=== PATIENT | male | born 1995 | race Caucasian/White ===

== ENCOUNTER 2017-07-14 08:13 | Inpatient (IN) | payer OTHER ==
[~2017-07-14 08:13] MED LIST: RISPERDAL1 M1 PO
--- NOTE | 2017-07-14 08:15 | ED PSYCHIATRIC COMPLAINT ---
History of Present Illness General Chief Complaint: Psychiatric Related Complaint Stated Complaint: BIBA FOUND OUTSIDE IN UNDERWEAR, COMBATIVE Source: EMS Exam Limitations: confusion Allergies Coded Allergies: tree nut (Severe, ANAPHYLAXIS 07/14/17) Reconcile Medications Risperidone (Risperdal) 1 MG TABLET 1 TAB PO DAILY SUSU Triage Nurses Notes Reviewed? yes HPI: 22 year old male presents to the ER for agitation and confusion. He was found in his underwear wandering the streets and told EMS he tried to smoke K47. He appears confused, smiling, agitated, right subconjunctival hemorrhage. He is unable to tell me what happened. He also has abrasions to his right elbow and left 2nd toe. (Heaven MORALES,Светлана) Vital Signs & Intake/Output Vital Signs & Intake/Output Vital Signs Date Time Temp Pulse Resp B/P B/P Pulse O2 O2 Flow FiO2 Mean Ox Delivery Rate 07/15 1340 97.6 84 18 137/84 100 Room Air 07/15 1114 98.0 97 18 150/89 99 Room Air 07/15 1113 99 Room Air 07/15 0900 98.0 74 18 130/77 99 Room Air 07/15 0700 99 Room Air 07/15 0700 96.9 76 18 147/81 99 Room Air 07/15 0559 98.2 105 20 170/99 100 Room Air 07/15 0020 98.8 110 18 156/82 97 Room Air 07/14 2043 98.7 108 18 167/96 100 Room Air 07/14 1833 98.2 100 146/98 07/14 1704 98.6 84 18 164/76 96 Room Air ED Intake and Output 07/15 0000 07/14 1200 Intake Total 3000 0 Output Total 1200 Balance 1800 0 Intake, IV 3000 Intake, Oral 0 Output, Urine 1200 (Yeni MORALES,Lyle Kerr) Past History Travel History Traveled to [place] past 21 day No Medical History Any Pertinent Medical History? 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 No (Светлана Collado MD) Review of Systems Review of Systems Constitutional: Reports: see HPI (UNABLE TO OBTAIN). (Светлана Collado MD) Physical Exam Physical Exam General Appearance: well developed/nourished, alert, awake Head: atraumatic, normal appearance Eyes: Bilateral: normal appearance, PERRL, EOMI. Ears, Nose, Throat: hearing grossly normal Extremities: normal range of motion, RIGHT ELBOW ABRASION, LEFT TOE ABRASION Neurological/Psychiatric: awake, alert, calm Appearance/Memory/Insight: disheveled, impaired insight Behavoir/Eye Contact/Speech: belligerent, uncooperative Thoughts/Hallucinations: no apparent hallucination Skin: intact, normal color, warm/dry SAD PERSONS Done? UNOBTAINABLE (Светлана Collado MD) Progress Differential Diagnosis: PSYCHOSIS, SCHIZOPHRENIA, SCHIZOAFFECTIVE DISORDER (Светлана Collado MD) Plan of Care: Orders Procedure Date/time Status CREATINE PHOSPHOKINASE 07/16 0600 Active CBC WITHOUT DIFFERENTIAL 07/16 0600 Active BASIC ELECTROLYTES PLUS BUN&CR 07/16 0600 Active Regular Diet 07/15 L Active Nothing by Mouth 07/15 B Complete CREATINE PHOSPHOKINASE 07/15 2200 Active CREATINE PHOSPHOKINASE 07/15 1600 Active Restraint- Behavioral (Order) 07/15 1030 Active Pathway - chart 07/15 1025 Active House Staff 07/15 1025 Active CREATINE PHOSPHOKINASE 07/15 1025 Complete Patient Data 07/15 0804 Active ED Holding Orders 07/15 0729 Active Admit to inpatient 07/15 0729 Active Vital Signs 07/15 0729 Active Code Status 07/15 0729 Active Restraint- Behavioral (Renew) 07/15 0700 Active Cali, Insertion/Removal/Asses 07/15 0635 Active CULTURE,URINE 07/15 0635 Active EKG 07/15 0635 Active CULTURE,URINE 07/15 0632 Active COMPREHENSIVE METABOLIC PANEL 07/15 0424 Complete CREATINE PHOSPHOKINASE 07/15 0424 Complete Continuous Observation Monitor 07/15 0410 Active Restraint- Behavioral (Renew) 07/15 0300 Active Continuous Observation Monitor 07/15 0010 Active VTE Mechanical Prophylaxis 07/15 UNK Active Restraint- Behavioral (Renew) 07/14 2245 Active Restraint- Behavioral (Renew) 07/14 1845 Active CBC WITHOUT DIFFERENTIAL 07/14 1756 Complete BASIC METABOLIC PANEL 07/14 1756 Complete Restraint- Behavioral (Order) 07/14 1444 Active Intake & Output 07/14 0921 Active Current Medications Sig/Shon Start time Last Medication Dose Stop Time Status Admin Acetaminophen 650 MG Q6P PRN 07/15 1030 AC (Tylenol) Sodium Chloride 1,000 ML .Q6H40M 07/15 1030 AC 07/15 (Normal Saline 0.9%) 1252 Enoxaparin Sodium 40 MG DAILY 07/15 1023 AC (Lovenox) Laboratory Tests 07/15/17 1113: Creatine Kinase 5147 H 07/15/17 0430: Anion Gap 19 H, Estimated GFR > 60, BUN/Creatinine Ratio 20.0, Glucose 151 H, Calcium 8.7, Total Bilirubin 0.9, AST 138 H, ALT 53, Alkaline Phosphatase 61, Creatine Kinase 6582 H, Total Protein 6.4, Albumin 4.0, Globulin 2.4, Albumin/ Globulin Ratio 1.7 07/14/17 1755: Anion Gap 18 H, Estimated GFR > 60, BUN/Creatinine Ratio 26.7 H, Glucose 66, Calcium 8.4, CBC w Diff NO MAN DIFF REQ, RBC 4.28 L, MCV 87.7, MCH 29.7, RDW 12.8, MPV 7.4, Gran % 77.3 H, Lymphocytes % 11.3 L, Monocytes % 10.9 H, Eosinophils % 0.1, Basophils % 0.4, Absolute Granulocytes 11.6 H, Absolute Lymphocytes 1.7, Absolute Monocytes 1.6 H, Absolute Eosinophils 0, Absolute Basophils 0.1, PUBS MCHC 33.8 07/14/17 1415: Urine Opiates Screen < 100.00, Methadone Screen 59, Barbiturate Screen < 60, Ur Phencyclidine Scrn < 6.00, Amphetamines Screen < 100, U Benzodiazepines Scrn < 85, Urine Cocaine Screen < 50, Urine Cannabis Screen 79.50 H Microbiology 07/15 0635 URINE ROUT: Urine Culture - ORD 07/15 0633 URINE ROUT: Urine Culture - RECD 9:08 AM DISCUSSED CASE WITH ICU RELATIONS LIAISON DR MCCARTHY WHO FEELS PATIENT CAN GO TO WITH A SAFETY MONITOR HE IS JUST RECEIVING FLUIDS, WAITING FOR PSYCHOSIS TO CLEAR. RESTING HR IN 70-80'S, EKG WNL. HEAD/NECK IMAGING NEGATIVE. WAITING FOR HOUSESTAFF TO EVALUATE PATIENT. (Heaven MORALES,Светлана) Diagnostic Imaging: Discussed w/RAD: CT Scan. Radiology Impression: PATIENT: LILI NEWMAN PRESENT AGE: 22 PATIENT ACCOUNT NO: [id number] : 95 LOCATION: [facility] ORDERING PHYSICIAN: Lyle Jaime MD SERVICE DATE: 07/15/17 EXAM TYPE: CAT - CT CERV SPINE WO IV CONTRAST; CT HEAD WO IV CONTRAST EXAMINATION: NONCONTRAST HEAD CT NONCONTRAST CERVICAL SPINE CT INDICATION INFORMATION: Paranoid. Head trauma. Cervical spine trauma. COMPARISON: None TECHNIQUE: Separate noncontrast CT examinations of the head and cervical spine were performed. Coronal and sagittal images were created for each examination at the technologist workstation. DLP: 1055 mGy-cm FINDINGS: Head: There is no evidence of acute intracranial hemorrhage or territorial infarction. No abnormal mass effect or midline shift is seen. Espinoza to white matter differentiation is well preserved. No extra-axial fluid collections are identified. No hydrocephalus. No significant volume loss. There is no abnormal attenuation within the brain parenchyma. The osseous structures and soft tissues are normal. The mastoid air cells and visualized portions of the paranasal sinuses are well aerated. Cervical spine: There is anatomic alignment of the vertebral bodies and posterior elements. The atlantoaxial and atlantooccipital articulations are intact. Vertebral body heights and intervertebral disc spaces are maintained. No evidence of acute fracture. No prevertebral soft tissue swelling. Visualized portions of the lung apices are unremarkable. The thyroid gland is unremarkable. IMPRESSION: 1. No acute intracranial findings. 2. Unremarkable appearance of the cervical spine. DICTATED BY: Antoine Hamlin MD DATE/TIME DICTATED:07/15/17622 TALENT ACQUISITION PROJECT MANAGER:[place] DATE/TIME TRANSCRIBED:07/15/17622 CONFIDENTIAL, DO NOT COPY WITHOUT APPROPRIATE AUTHORIZATION. <Electronically signed in Other Vendor System> SIGNED BY: Antoine Hamlin MD 07/15/17 0628 Comments: 07/14/2017 19:45:03 PM patient signed out to me by Dr. Collado at shift change advisor. Patient resting comfortably. 07/14/2017 11:10:42 PM patient continues to show signs of hallucinations and delusions. 07/15/2017 4:18:29 AM patient continues to yell and show signs of severe agitation despite repeated doses of Zyprexa and other sedatives. 07/15/2017 5:54:31 AM patient's CK has elevated although fortunately his renal functions remains stable. His acidosis has improved some. Given his persistently agitated state I have ordered ketamine to facilitate a CAT scan of the head to rule out intracranial pathology or trauma and to facilitate IV fluids. I feel the patient should be admitted given his worsening rhabdomyolysis. 07/15/2017 7:33:04 AM patient signed out to Dr. Collado at shift change advisor. Patient's head CAT scan reveals no acute abnormality. Cali catheter has been placed to facilitate intake and output recordings. IV fluids have been ordered to maintain renal perfusion. (Yeni MORALES,Lyle Kerr) Departure Departure Time of Disposition: 728 Disposition: STILL A PATIENT Condition: Stable Clinical Impression Primary Impression: Rhabdomyolysis Secondary Impressions: Agitation, Psychosis Referrals: Patient Has No Primary Care Dr (PCP/Family) Departure Forms: Customer Survey General Discharge Information Admission Note Spoke With: Walker Burgess MD Documentation of Exam: Documentation of any treatments & extenuating circumstances including Concerns Regarding Discharge (functional status, medication knowledge or non-compliance, living conditions, etc.) that warrant an admission rather than observation: [ RESTRAINTS, SEDATION, IV FLUIDS, RECHECK ELECTROLYTES, RECHECK CK, 1:1 SITTER, CRISIS EVALUATION WHEN MEDICALLY CLEARED, CASE DISCUSSED WITH DR MCCARTHY] (Heaven MORALES,Светлана)
[2017-07-14 08:35] LABS: ABSOLUTE BASOPHIL COUNT 0.1 /CUMM (0.0-0.2); ABSOLUTE EOSINOPHIL COUNT 0 /CUMM (0.0-0.7); ABSOLUTE GRANULOCYTE CT 17.4 /CUMM (1.4-6.5); ABSOLUTE LYMPH COUNT 1.3 /CUMM (1.2-3.4); ABSOLUTE MONOCYTE COUNT 1.6 /CUMM (0.10-0.60); BASOPHIL % 0.3 % (0.0-2.0); EOSINOPHIL % 0 % (0-5); GRANULOCYTE % 85.5 % (42.2-75.2); HEMATOCRIT 42.6 % (42-52); MEAN CORPUSCULAR HGB CONC 34.3 G/DL (33.0-37.0); MEAN CORPUSCULAR VOLUME 87.6 FL (80.0-94.0); PLATELET COUNT 328 /CUMM (130-400); RBC DISTRIBUTION WIDTH 12.6 % (11.5-14.5); RED BLOOD CELL CT 4.86 /CUMM (4.70-6.10); WHITE BLOOD CELL COUNT 20.3 /CUMM (4.8-10.8)
[2017-07-14 18:07] LABS: ABSOLUTE BASOPHIL COUNT 0.1 /CUMM (0.0-0.2); ABSOLUTE EOSINOPHIL COUNT 0 /CUMM (0.0-0.7); ABSOLUTE MONOCYTE COUNT 1.6 /CUMM (0.10-0.60); BASOPHIL % 0.4 % (0.0-2.0); EOSINOPHIL % 0.1 % (0-5)
[2017-07-14 18:15] LABS: ABSOLUTE GRANULOCYTE CT 11.6 /CUMM (1.4-6.5); ABSOLUTE LYMPH COUNT 1.7 /CUMM (1.2-3.4); GRANULOCYTE % 77.3 % (42.2-75.2); MEAN CORPUSCULAR HGB 29.7 PG (27.0-31.0); MEAN CORPUSCULAR HGB CONC 33.8 G/DL (33.0-37.0); MEAN CORPUSCULAR VOLUME 87.7 FL (80.0-94.0); MEAN PLATELET VOLUME 7.4 FL (7.4-10.4); PLATELET COUNT 267 /CUMM (130-400); RBC DISTRIBUTION WIDTH 12.8 % (11.5-14.5); RED BLOOD CELL CT 4.28 /CUMM (4.70-6.10)
[2017-07-14 18:16] LABS: HEMATOCRIT 37.5 % (42-52)
--- NOTE | 2017-07-15 06:28 | CT SCAN REPORT ---
EXAMINATION: NONCONTRAST HEAD CT NONCONTRAST CERVICAL SPINE CT INDICATION INFORMATION: Paranoid. Head trauma. Cervical spine trauma. COMPARISON: None TECHNIQUE: Separate noncontrast CT examinations of the head and cervical spine were performed. Coronal and sagittal images were created for each examination at the technologist workstation. DLP: 1055 mGy-cm FINDINGS: Head: There is no evidence of acute intracranial hemorrhage or territorial infarction. No abnormal mass effect or midline shift is seen. Espinoza to white matter differentiation is well preserved. No extra-axial fluid collections are identified. No hydrocephalus. No significant volume loss. There is no abnormal attenuation within the brain parenchyma. The osseous structures and soft tissues are normal. The mastoid air cells and visualized portions of the paranasal sinuses are well aerated. Cervical spine: There is anatomic alignment of the vertebral bodies and posterior elements. The atlantoaxial and atlantooccipital articulations are intact. Vertebral body heights and intervertebral disc spaces are maintained. No evidence of acute fracture. No prevertebral soft tissue swelling. Visualized portions of the lung apices are unremarkable. The thyroid gland is unremarkable. IMPRESSION: 1. No acute intracranial findings. 2. Unremarkable appearance of the cervical spine.
--- NOTE | 2017-07-15 09:52 | History & Physical ---
Francisco MORALES,[place] 07/15/17 0951: General Information and HPI MD Statement: I have seen and personally examined LILI NEWMAN and documented this H&P. The patient is a 22 year old M who presented with a patient stated chief complaint of [Agitation, confusion, psychotic behavior]. Source of Information: EMS, ER notes, father Exam Limitations: unable to give history, confusion History of Present Illness: 22 year old male with a remote history of schizophrenia not on medications presents to the ER for agitation and confusion. He was found in his underwear wandering the streets and told EMS he tried to smoke K47 (also known as pot- pouri or spice on the streets). He appeared confused and was severely agitated requiring restraints in the ER. He is unable to contribute to the history. According to information gathered by ER staff, his father says he had become very stressed recently; had bought an expensive car but was having trouble making the payments. He lives with his parents, has a job and has been functioning well despite his history of schizophrenia without much issues until recently. It is unclear if he smokes, drinks alcohol or uses any other illicit medications. In the ER he had to be medicated with ketamine to get a Head CT due to severe agitation not amenable to other medications. 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 Home Who Do You Live With? parent Smoking Status: Unknown If Ever Smoked ETOH Use: unknown Illicit Drug Use: marijuana Review of Systems Review of Systems Constitutional: Reports: no symptoms. Comments pt unable to participate in history due to AMS Exam & Diagnostic Data Last 24 Hrs of Vital Signs/I&O Vital Signs Date Time Temp Pulse Resp B/P B/P Pulse O2 O2 Flow FiO2 Mean Ox Delivery Rate 07/15 1429 86 139/86 07/15 1340 97.6 84 18 137/84 100 Room Air 07/15 1114 98.0 97 18 150/89 99 Room Air 07/15 1113 99 Room Air 07/15 0900 98.0 74 18 130/77 99 Room Air 07/15 0700 99 Room Air 07/15 0700 96.9 76 18 147/81 99 Room Air 07/15 0559 98.2 105 20 170/99 100 Room Air 07/15 0020 98.8 110 18 156/82 97 Room Air 07/14 2043 98.7 108 18 167/96 100 Room Air 07/14 1833 98.2 100 146/98 07/14 1704 98.6 84 18 164/76 96 Room Air Intake & Output 07/15 1600 07/15 0800 07/15 0000 Intake Total 3000 Output Total 600 1200 Balance -600 1800 Intake, IV 3000 Output, Urine 600 1200 Physical Exam General Appearance Lethargic and drowsy but arousable with voice and painful stimuli, confused Skin bruise over left 2nd toes and erthematous rash over bilateral knees Skin Temp/Moisture Exam: Warm/Dry Sepsis Skin Exam (color): Normal for Ethnicity HEENT Mucous Membr. moist/pink, small but reactive pupils, right conjunctival hemorrhage Neck Supple, No JVD Cardiovascular Normal S1, Normal S2, with missed beats Lungs Clear to Auscultation, Normal Air Movement Abdomen Normal Bowel Sounds, Soft, No Tenderness Extremities No Edema, Normal Pulses Last 24 Hrs of Labs/Tom: Laboratory Tests 07/15/17 1113: Creatine Kinase 5147 H 07/15/17 0430: Anion Gap 19 H, Estimated GFR > 60, BUN/Creatinine Ratio 20.0, Glucose 151 H, Calcium 8.7, Total Bilirubin 0.9, AST 138 H, ALT 53, Alkaline Phosphatase 61, Creatine Kinase 6582 H, Total Protein 6.4, Albumin 4.0, Globulin 2.4, Albumin/ Globulin Ratio 1.7 07/14/17 1755: Anion Gap 18 H, Estimated GFR > 60, BUN/Creatinine Ratio 26.7 H, Glucose 66, Calcium 8.4, CBC w Diff NO MAN DIFF REQ, RBC 4.28 L, MCV 87.7, MCH 29.7, RDW 12.8, MPV 7.4, Gran % 77.3 H, Lymphocytes % 11.3 L, Monocytes % 10.9 H, Eosinophils % 0.1, Basophils % 0.4, Absolute Granulocytes 11.6 H, Absolute Lymphocytes 1.7, Absolute Monocytes 1.6 H, Absolute Eosinophils 0, Absolute Basophils 0.1, PUBS MCHC 33.8 Microbiology 07/15 0635 URINE ROUT: Urine Culture - CAN Cancelled: DUPLICATE - SEE [id number] 07/15 06 URINE ROUT: Urine Culture - RECD Diagnostic Data EKG Results SR-90; inferior q waves, non-specific t-wave abnormalities Assessment/Plan Assessment: 22 year old male with a remote history of schizophrenia not on medications presents to the ER for agitation and confusion. He was found in his underwear wandering the streets and told EMS he tried to smoke K47 (also known as pot- pouri or spice on the streets). He appeared confused and was severely agitated requiring restraints in the ER. 1. Psychosis with AMS likely from sedation 2. Rhabdomyolysis-eleveted CK possibly from severe agitation 3. Remote hx of schizophrenia Plan 1. Admit to GM 2. IVF hydration with D5 1/2 NS 3. Keep NPO for now 4. 1:1 sitter 5. trend CK Q6 hrs 6. CXR to rule aspiration pnuemonitis 7. Aspiration precaution 8. Psych consult in AM 9. Follow attending recommendations 10. DVT ppx-with lovenox 11. FC 12. Mild pain pathway; avoid opiods/sedatives As Ranked By This Provider Problem List: 1. Psychosis 2. Rhabdomyolysis Core Measures/Misc (03/18) Acute Coronary Syndrome ACS Diagnosis: No Congestive Heart Failure Congestive Heart Failure Diagnosis No Cerebrovascular Accident CVA/TIA Diagnosis: No VTE (View Protocol) VTE Risk Factors Acute Medical Illness No Mechanical VTE Prophylaxis d/t N/A MechProphylax Ordered No VTE Pharm Prophylaxis d/t NA PharmProphylax ordered Sepsis (View protocol) Sepsis Present: No Resident Review Statement Resident Statement: examined this patient Other Findings: see TAI Burgess MD,Walker 07/15/17 1406: Attending MD Review Statement Attending Statement Attending MD Statement: examined this patient, discuss w/resident/PA/MICA PLATE LAYER, agreed w/resident/PA/MICA PLATE LAYER, reviewed EMR data (avail), discussed with nursing, discussed with case mgmt, amended to note Attending Assessment/Plan: Patient seen and examined. History mostly obtained from ER staff. He is a 22- year-old male with history of schizophrenia reports of poor compliance with therapy was brought in after he was found wandering the streets in his underwear. He had reportedly smoked a medication called K47. Is unclear what this medication is. Staff report that it is synthetic marijuana. An online search suggests it may be a combination of cocaine and ketamine. His urine toxicology was positive only for marijuana which he apparently smokes as well. He was brought into the emergency room for evaluation yesterday morning. He was hallucinating and delirious and required several doses of sedatives. Yesterday in the emergency room he got a total of Ativan 6 mg IV, Benadryl 100 mg Haldol 10 mg and Zyprexa 10 mg. This morning he was again agitated and received Zyprexa 10 mg as well as 50 mg of ketamine. He was restrained on 4 points. He is found with rhabdomyolysis with CPK level of over 6000 yesterday. Levels had improved to 5147 at which point he was referred to the inpatient medical service for further management of his rhabdomyolysis in addition to his psychosis. General appearance: Very sedated but responsive. HEENT: Anicteric, no pallor right conjunctiva hemorrhage. Neurologic: Four-point restraints in place. Answers questions appropriately when awake but falls back asleep. Able to protect airway. Pupils equal and reactive. No nystagmus. Extraocular muscles intact. Heart: S1-S2 regular Lungs: Good entry bilaterally, clear to auscultation Abdomen: Flat, soft, nontender with normal bowel sounds Extremities: No pedal edema Head CT today shows no acute pathologies. Problems: 1. Acute medication induced psychosis.; In patient with underlying schizophrenia and poorly compliant with therapy. 2. Rhabdomyolysis 3. Leukocytosis; likely reactive 4. Anion gap acidosis; likely secondary to starvation plan:. -Admit to inpatient General medical service. -Aggressive IV hydration with D5 half normal saline at 1 25 cc/h. 2 L. -Psychiatric consultation. -Close monitoring for de-escalation of restraints per nursing protocol.- -Maintain aspiration precautions at all times. Hold all sedatives when patient is drowsy. -Keep n.p.o. until patient is significantly more alert. -No clinical evidence of infection are present. Recommend obtaining chest x-ray to rule out aspiration pneumonitis. -DVT prophylaxis with heparin subcu.
[2017-07-15 16:04] VITALS: BP 140/80
--- NOTE | 2017-07-15 17:41 | RADIOLOGY REPORT ---
EXAMINATION: XR PORTABLE CHEST CLINICAL INFORMATION: Altered mental status. Medication overdose. Evaluate for aspiration pneumonitis. COMPARISON: None TECHNIQUE: Portable frontal view of the chest was obtained. FINDINGS: The lungs are well-inflated and clear. Trachea is midline in position. No evidence of interstitial lung disease, focal consolidation, mass or pleural effusion. The cardiomediastinal silhouette and hilar structures have normal size and contour. Bones of the thorax are unremarkable. The visualized upper abdomen is normal. IMPRESSION: No evidence of aspiration pneumonia.
[2017-07-15 22:47] VITALS: BP 152/84
[2017-07-16 06:30] VITALS: BP 144/70
[2017-07-16 09:16] LABS: ABSOLUTE BASOPHIL COUNT 0 /CUMM (0.0-0.2); ABSOLUTE EOSINOPHIL COUNT 0.1 /CUMM (0.0-0.7); ABSOLUTE GRANULOCYTE CT 5.8 /CUMM (1.4-6.5); ABSOLUTE MONOCYTE COUNT 0.9 /CUMM (0.10-0.60); BASOPHIL % 0.5 % (0.0-2.0); EOSINOPHIL % 1.6 % (0-5); GRANULOCYTE % 65.2 % (42.2-75.2); HEMATOCRIT 38.1 % (42-52); MEAN CORPUSCULAR HGB 30.3 PG (27.0-31.0); MEAN CORPUSCULAR HGB CONC 34.5 G/DL (33.0-37.0); MEAN CORPUSCULAR VOLUME 87.9 FL (80.0-94.0); MEAN PLATELET VOLUME 7.5 FL (7.4-10.4); PLATELET COUNT 276 /CUMM (130-400); RBC DISTRIBUTION WIDTH 13.2 % (11.5-14.5); RED BLOOD CELL CT 4.34 /CUMM (4.70-6.10); WHITE BLOOD CELL COUNT 8.8 /CUMM (4.8-10.8)
--- NOTE | 2017-07-16 11:15 | PN- Housestaff ---
See Addendum Subjective Follow-up For: Rhabdomyolysis Subjective: Patient was seen and examined, sitter at bedside, vitals are stable. No complaints. Alert, orinated x 3. denies pain. Has laceration of the right elbow and sub-conjunctiva hemorrhage of the right eye however no pain and vision is intact. Review of Systems Constitutional: Reports: see HPI. Objective Last 24 Hrs of Vital Signs/I&O Vital Signs Date Time Temp Pulse Resp B/P B/P Pulse O2 O2 Flow FiO2 Mean Ox Delivery Rate 07/16 0630 98.1 91 18 144/70 97 Room Air 07/15 2247 99.1 106 19 152/84 98 Room Air 07/15 1604 98.0 70 20 140/80 98 07/15 1429 86 139/86 07/15 1340 97.6 84 18 137/84 100 Room Air 07/15 1114 98.0 97 18 150/89 99 Room Air 07/15 1113 99 Room Air Intake & Output 07/16 1600 07/16 0800 07/16 0000 Intake Total 900 800 Output Total 800 750 Balance 100 50 Intake, IV 800 400 Intake, Oral 100 400 Number 0 Bowel Movements Output, Urine 800 750 Physical Exam General Appearance: Alert, Oriented X3, Cooperative, No Acute Distress Skin: No Rashes, No Breakdown, No Significant Lesion Skin Temp/Moisture Exam: Warm/Dry HEENT: Atraumatic, PERRLA, EOMI, Mucous Membr. moist/pink Neck: Supple Cardiovascular: Regular Rate, Normal S1, Normal S2, No Murmurs Lungs: Clear to Auscultation, Normal Air Movement Abdomen: Normal Bowel Sounds, Soft, No Tenderness Neurological: Normal Speech, Strength at 5/5 X4 Ext, Normal Tone, Sensation Intact, Cranial Nerves 3-12 NL, Reflexes 2+ Extremities: No Clubbing, No Cyanosis, No Edema, Normal Pulses Assessment/Plan Assessment: 22 year old male with a remote history of schizophrenia not on medications presents to the ER for agitation and confusion. He was found in his underwear wandering the streets and told EMS he tried to smoke K47 (also known as pot- pouri or spice on the streets). He appeared confused and was severely agitated requiring restraints in the ER. 1. Psychosis with AMS likely from sedation 2. Rhabdomyolysis-eleveted CK possibly from severe agitation 3. Remote hx of schizophrenia Plan 1. Continue IV hydration with 1 25 mL/h 2. Will keep patient nothing by mouth since he still drowsy, and we will assess later in the day and to start diet if appropriate 3. 1:1 sitter 4. Keep the Cali catheter for now 5. CK is improving 2264 today, will repeat in a.m. 6. CXR was obtained to rule out aspiration pneumonia since the patient presented with white blood cell 20 however when down to 8.8 mostly reactive 7. Urine culture remained negative 8. Psych consult in AM 9. Follow attending recommendations pending 10. DVT ppx-with lovenox 11. FC 12. Mild pain pathway; avoid opiods/sedatives Problem List: 1. Rhabdomyolysis Pain Ratin Pain Location: N/A Pain Goal: Pain 4 or less Pain Plan: See medication Tomorrow's Labs & Rationales: CK
[2017-07-16 14:26] VITALS: BP 140/60
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
[2017-07-16 22:40] VITALS: BP 152/70
[2017-07-17 06:19] VITALS: BP 114/70
--- NOTE | 2017-07-17 08:53 | PN- Housestaff ---
Ajay MORALES,[facility] 07/17/17 0844: Subjective Follow-up For: Rhabdomyolysis Subjective: Patient was seen and examined this morning, vitals stable. Patient is more awake today. I asked him if he has any pain, he reported "pain in my arm", "I do not know where, I think it is gone". Kinf of confused with pressure talk. No overnight reports for agitation. Was evaluated by psych yesterday. Patient wants to be discharged today, he was told to wait for psych recommendation. Review of Systems Constitutional: Reports: see HPI. Objective Last 24 Hrs of Vital Signs/I&O Vital Signs Date Time Temp Pulse Resp B/P B/P Pulse O2 O2 Flow FiO2 Mean Ox Delivery Rate 07/17 0619 98.2 86 20 114/70 97 Room Air 07/16 2240 98.9 82 18 152/70 95 07/16 1426 98.0 93 18 140/60 97 Room Air Intake & Output 07/17 1600 07/17 0800 07/17 0000 Intake Total 1600 980 Output Total Balance 1600 980 Intake, IV 1000 500 Intake, Oral 600 480 Physical Exam General Appearance: Alert, Cooperative, No Acute Distress Skin: laceration over the right elbow Skin Temp/Moisture Exam: Warm/Dry HEENT: Atraumatic, PERRLA, EOMI, Mucous Membr. moist/pink Neck: Supple Cardiovascular: Regular Rate, Normal S1, Normal S2, No Murmurs Lungs: Clear to Auscultation, Normal Air Movement Abdomen: Normal Bowel Sounds, Soft, No Tenderness Neurological: Normal Speech, Strength at 5/5 X4 Ext, Normal Tone, Sensation Intact, Cranial Nerves 3-12 NL, Reflexes 2+ Extremities: No Clubbing, No Cyanosis, No Edema, Normal Pulses Assessment/Plan Assessment: 22 year old male with a remote history of schizophrenia not on medications presents to the ER for agitation and confusion. He was found in his underwear wandering the streets and told EMS he tried to smoke K47 (also known as pot- pouri or spice on the streets). He appeared confused and was severely agitated requiring restraints in the ER. 1. Psychosis with AMS likely from sedation 2. Rhabdomyolysis-eleveted CK possibly from severe agitation 3. Remote hx of schizophrenia Plan 1. Continue IV hydration with 1 25 mL/h 2. Psych evaluation was obtained yesterday with recommendation to keep him in hospital, they will offer me inpatient admission today. 3. 1:1 sitter 4. Cali catheter removed yesterday, diet was started as well 5. CK is improving gradually, today level is pending 6. CXR was obtained to rule out aspiration pneumonia since the patient presented with white blood cell 20 however when down to 8.8 mostly reactive 7. Urine culture remained negative DVT ppx-with lovenox FC Diet regular Mild pain pathway; avoid opiods/sedatives Problem List: 1. Rhabdomyolysis Pain Ratin Pain Location: n/a Pain Goal: Pain 4 or less Pain Plan: see medication Tomorrow's Labs & Rationales: NELLI Allred MD,Abbi 07/17/17 1229: Attending MD Review Statement Attending Statement Attending MD Statement: examined this patient, discuss w/resident/PA/PRODUCT PROMOTER SALES PERSON, agreed w/resident/PA/PRODUCT PROMOTER SALES PERSON, reviewed EMR data (avail), discussed with nursing, discussed with case mgmt, amended to note Attending Assessment/Plan: Patient seen and examined, more awake today and feels overall better. CK levels are coming down. Vital Signs Date Time Temp Pulse Resp B/P B/P Pulse O2 O2 Flow FiO2 Mean Ox Delivery Rate 07/17 0619 98.2 86 20 114/70 97 Room Air 07/16 2240 98.9 82 18 152/70 95 07/16 1426 98.0 93 18 140/60 97 Room Air on exam; aox3, nad. cv; s1,s2, rrr resp; clear abd; soft, nt, bs+ ext; no edema. Laboratory Tests 07/17 0819 Chemistry Sodium (137 - 145 mmol/L) 144 Potassium (3.5 - 5.1 mmol/L) 4.0 Chloride (98 - 107 mmol/L) 106 Carbon Dioxide (22 - 30 mmol/L) 27 Anion Gap (5 - 16) 11 BUN (9 - 20 mg/dL) 7 L Creatinine (0.7 - 1.2 mg/dL) 0.8 Estimated GFR (>60 ml/min) > 60 BUN/Creatinine Ratio (7 - 25 %) 8.8 Creatine Kinase (55 - 170 U/L) 1181 H A/P; Patient is a 22-year-old male with remote history of schizophrenia, not on any medications admitted with altered mental state, rhabdomyolysis. CK levels improved. Will DC IVfs. Patient seen by Psych today. Has been cleared by psych to go home. Please clarify with psychiatry about continuing Risperdal. If patient cleared from psych standpoint, he is medically stable for discharge home today. Outpatient follow-up plan as noted in the psychiatry note.
--- NOTE | 2017-07-17 11:58 | PN- Psychiatry ---
Assessment/Plan Impression: Thepatient alanains some rigid thinking about psychiatric treatment for his anxiety. He wants to be assured that he will be assigned a prescriber who will give him what he wants, namely Xanax. He has been getting this from a friend in the past. He is not currently open to first-line medications, such as SSRI, and he is not willing to admit he has a cannabis use problem. He is agreeable to an intake appointment with [facility]; we are awaiting a return call. TC with his mother, Mia, today: She visited last night and thinks that the patient is at his baseline, and is willing to take him back home. She is in agreement that the patient should be in a program. she mentions that she is trying to get him an appointment at [facility] ([facility]). I disclosed to her (and the patient a few minutes later) that I am employed at [facility] [facility] part-time, but that would not prevent the patient from coming there, and if he does not wish to see me, there are other providers. The patient agreed to meet with myself and the [facility] medical student for the interview today. After the interview, he stated that he only wished to meet alone with this policy writer sales in the future, here in the hospital. Suggestion: 1. We will advise the patient of his intake appointment at [facility] for therapy and medication management for anxiety and substance use disorder. We are expecting a return call. 2. Instruct the patient to avoid alcohol, cannabis, synthetic marijuana and other street/recreational drugs. The patient is not suicidal, not psychotic, not delirious, and is cleared psychiatrically for discharge. Signed [facility] releases for [facility] and the patient's parents are in the chart. Thank you for this consult. Psychiatry is signing off, but will advise patient of his intake appointment. Subjective Subjective: Alert and oriented. Denies AH or VH, and presents no mil delusions. He denies SI or HI. Insight into his condition, including drug use and anxiety, possibly substance-induced, is limited. Judgement is moderate. He reportshe feels safe here. Objective Last 24 Hrs of Vital Signs/I&O Vital Signs Date Time Temp Pulse Resp B/P B/P Pulse O2 O2 Flow FiO2 Mean Ox Delivery Rate 07/17 0619 98.2 86 20 114/70 97 Room Air 07/16 2240 98.9 82 18 152/70 95 07/16 1426 98.0 93 18 140/60 97 Room Air Intake & Output 07/17 1600 07/17 0800 07/17 0000 Intake Total 1600 980 Output Total Balance 1600 980 Intake, IV 1000 500 Intake, Oral 600 480 Physical Exam: Not performed. Physical Exam General Appearance: alert, awake Neurologic/Psychiatric: alert, oriented x 3 Current Medications: Current Medications Sig/Shon Start time Last Medication Dose Route Stop Time Status Admin Acetaminophen 650 MG Q6P PRN 07/15 1030 AC 07/16 PO 0246 Dextrose/Lactated 1,000 ML Q8H 07/15 1615 DC 07/17 Ringer's IV 0204 Enoxaparin Sodium 40 MG DAILY 07/15 1023 AC 07/17 SC 0752 Ramelteon 8 MG .STK-MED ONE 07/17 0011 DC PO 07/17 0012 Ramelteon 8 MG ONCE ONE 07/16 2345 DC 07/17 PO 07/16 2346 0012 Results Last 24 Hrs of Labs/Mics: Laboratory Tests 07/17 0819 Chemistry Sodium (137 - 145 mmol/L) 144 Potassium (3.5 - 5.1 mmol/L) 4.0 Chloride (98 - 107 mmol/L) 106 Carbon Dioxide (22 - 30 mmol/L) 27 Anion Gap (5 - 16) 11 BUN (9 - 20 mg/dL) 7 L Creatinine (0.7 - 1.2 mg/dL) 0.8 Estimated GFR (>60 ml/min) > 60 BUN/Creatinine Ratio (7 - 25 %) 8.8 Creatine Kinase (55 - 170 U/L) 1181 H
--- NOTE | 2017-07-17 13:05 | Patient Discharge Instructions ---
See Addendum Discharge Instructions General Discharge Information Special Instructions: -Please follow up with your PCP within one week after discharge. -Please follow up with your appointment at [facility] for therapy and medication management for anxiety and substance use disorder. -Please avoid alcohol, cannabis, synthetic marijuana and other street/ recreational drugs. Acute Coronary Syndrome Inclusion Criteria At DC or during hospital stay patient has or had the following: ACS DIAGNOSIS No Discharge Core Measures Meds if any: Prescribed or Continued at Discharge Meds if any: NOT Prescribed or Continued at Discharge Congestive Heart Failure Inclusion Criteria At DC or during hospital stay patient has or had the following: CHF DIAGNOSIS No Discharge Core Measures Meds if any: Prescribed or Continued at Discharge Meds if any: NOT Prescribed or Continued at Discharge Cerebrovascular accident Inclusion Criteria At DC or during hospital stay patient has or had the following: CVA/TIA Diagnosis No Discharge Core Measures Meds if any: Prescribed or Continued at Discharge Meds if any: NOT Prescribed or Continued at Discharge Venous thromboembolism Inclusion Criteria VTE Diagnosis No VTE Type NONE VTE Confirmed by (Test) NONE Discharge Core Measures - Per Current guidelines, there needs to be overlap - treatment for the first 5 days of Warfarin therapy. - If discharged on Warfarin prior to 5 days of - overlap therapy, the patient will need to be - assessed for post discharge needs including - *Post discharge parental anticoagulation - *Warfarin and/or parental anticoagulation education - *Follow up date to check INR post discharge At least 5 days overlap therapy as Inpatient Yes Meds if any: Prescribed or Continued at Discharge Note: Overlap Therapy is Warfarin and Anticoagulant Meds if any: NOT Prescribed or Continued at Discharge
--- NOTE | 2017-07-17 13:27 | Incdntl Nt Psy ---
Incidental Note Notation: The patient has an intale appointment for psychiatry and counseling at [facility], [address] [place] [address], , on 07/23/17, at 9:30 AM.
[2017-07-17 13:57] VITALS: BP 128/90
--- NOTE | 2017-07-17 14:03 | Discharge Summary ---
Visit Information Visit Dates Admission Date: 07/15/17 Discharge Date: 07/17/17 Hospital Course Course Attending Physician: Abbi Allred MD Primary Care Physician: Patient Has No Primary Care Dr Hospital Course: Mr. Li is 22 year old male with past medical history significant for anxiety, psychosis and polysubstance abuse who presented to ED after he was found wandering the streets in his underwear. He had reportedly smoked a medication called K47 which is either ketamine and cocaine combination or synthetic marijuana. CT head and cervical spine was unremarkable, chest x-ray within normal findings. Urine toxicology was positive only for marijuana. Patient was initially hallucinating and delirious which required multiple doses of sedatives: Ativan, Haldol and Benadryl in addition to 10 mg of zepraxa and 50 mg of ketamine and finally he was restrained in 4 points heart strain. Patient was found to have rhabdomyolysis with CPK level over 6000, was started on aggressive IV fluid resuscitation, creatinine kinase was measured daily and improved to 1000 on discharge. Patient denied any body pain, chest pain, shortness of breath, palpitation. Kidney function remained normal. He also was found to have anion gap acidosis secondary to starvation that improved with fluid resuscitation. Patient was discharged after medical and psychiatric clearance. He is supposed to follow up with psychiatric outpatient on Sunday07/23/17. [facility], [address] [place] [address], , on 07/23/17, at 9: 30 AM. Allergies: Coded Allergies: tree nut (Severe, ANAPHYLAXIS 07/14/17) Disposition Summary Disposition Principal Diagnosis: Rhabdomyolysis Additional Diagnosis: Drug induced psychosis Discharge Disposition: home or self care Discharge Instructions General Discharge Information Code Status: Full Code Patient's Diet: Regular Patient's Activity: As tolerated Follow-Up Instructions/Appts: -Please follow up with your PCP within one week after discharge. -Please follow up with your appointment at [facility] for therapy and medication management for anxiety and substance use disorder Sunday07/23/17 at 9:30 in am and address is [address] [place] [address] -Please avoid alcohol, cannabis, synthetic marijuana and other street/ recreational drugs. Copies To: Juanito MORALES,Mauri Cho APRN, MD Review Statement Other Findings: Patient was discussed with psychiatry and was cleared from psych stand for discharge home.
== END 2017-07-17 17:27 | DRG 351 ==
LOC: ERH 08:13 → 2NA 07-15 07:29 → ERHI 07-15 07:29 → ENRESERV 07-15 13:36 → ENTRNSPT 07-15 14:52 → EDTRNSPTSTS 07-15 15:08 → EDTRNSPT 07-15 15:08 → 2NA 07-15 15:25 → CMPTRNSPT 07-15 15:42 → 2NA 07-16 14:23 → ENTRNSPT 07-17 14:38 → EDTRNSPTSTS 07-17 14:53 → CMPTRNSPT 07-17 15:05 → 2NA 07-17 17:27
PROVIDERS: Emergency Medicine; Student in an Organized Health Care Education/Training Program
DX: M62.82 Rhabdomyolysis (principal); F20.9 Schizophrenia, unspecified; E87.2 Acidosis; F12.959 Cannabis use, unspecified with psychotic disorder, unspecified; Z91.14 Patient's other noncompliance with medication regimen
CPT/HCPCS: 2NAP; 36415; 71045; 80307; 82436; 87086; 93005; 93010; 96361; 96372; 96374; 96375; 99291; G0480; J1200; J1630; J1650; J3490; J7042

== ENCOUNTER 2017-10-06 20:18 | Inpatient (IN) | payer OTHER ==
[~2017-10-06] VITALS: Ht 182.9 cm; Wt 63.0 kg
[2017-10-06 20:53] LABS: ABSOLUTE BASOPHIL COUNT 0 /CUMM (0.0-0.2); ABSOLUTE EOSINOPHIL COUNT 0 /CUMM (0.0-0.7); ABSOLUTE GRANULOCYTE CT 8.1 /CUMM (1.4-6.5); ABSOLUTE LYMPH COUNT 2.6 /CUMM (1.2-3.4); ABSOLUTE MONOCYTE COUNT 1.1 /CUMM (0.10-0.60); BASOPHIL % 0.4 % (0.0-2.0); EOSINOPHIL % 0.1 % (0-5); GRANULOCYTE % 68.1 % (42.2-75.2); HEMATOCRIT 43.9 % (42-52); MEAN CORPUSCULAR HGB 29.5 PG (27.0-31.0); MEAN CORPUSCULAR HGB CONC 33.4 G/DL (33.0-37.0); MEAN CORPUSCULAR VOLUME 88.2 FL (80.0-94.0); MEAN PLATELET VOLUME 7.3 FL (7.4-10.4); PLATELET COUNT 378 /CUMM (130-400); RBC DISTRIBUTION WIDTH 13.1 % (11.5-14.5); RED BLOOD CELL CT 4.98 /CUMM (4.70-6.10); WHITE BLOOD CELL COUNT 11.8 /CUMM (4.8-10.8)
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
[2017-10-07 05:00] VITALS: BP 147/94
[2017-10-07 05:35] LABS: ABSOLUTE BASOPHIL COUNT 0.1 /CUMM (0.0-0.2); ABSOLUTE EOSINOPHIL COUNT 0 /CUMM (0.0-0.7); ABSOLUTE GRANULOCYTE CT 6.3 /CUMM (1.4-6.5); ABSOLUTE LYMPH COUNT 2.3 /CUMM (1.2-3.4); ABSOLUTE MONOCYTE COUNT 1.1 /CUMM (0.10-0.60); BASOPHIL % 0.6 % (0.0-2.0); EOSINOPHIL % 0.1 % (0-5); GRANULOCYTE % 65.1 % (42.2-75.2); MEAN CORPUSCULAR HGB 29.4 PG (27.0-31.0); MEAN CORPUSCULAR HGB CONC 33.5 G/DL (33.0-37.0); MEAN CORPUSCULAR VOLUME 87.7 FL (80.0-94.0); MEAN PLATELET VOLUME 7.1 FL (7.4-10.4); PLATELET COUNT 268 /CUMM (130-400); RBC DISTRIBUTION WIDTH 12.9 % (11.5-14.5); RED BLOOD CELL CT 4.13 /CUMM (4.70-6.10); WHITE BLOOD CELL COUNT 9.7 /CUMM (4.8-10.8)
[2017-10-07 05:38] LABS: HEMATOCRIT 36.2 % (42-52)
[2017-10-07 08:00] VITALS: BP 140/80
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
--- NOTE | 2017-10-07 11:53 | Cons- Psychiatry ---
Psychiatric Consult Date of Consult: 10/07/17 Reason for Consult: "psychosis and agitation" History of Present Illness: Pt with hx of one episode of psychosis leading to hospitalization now with second admission to medicine for delirium, psychosis, and agitation in the setting of likely substance use. Pt given versed, ativa, haldo, thorazine, and benadryl for severe agitation. On interview today, barely arousable. Did state when asked about the details leading to hospitalization that he is "eating dinner at home." Kept falling asleep. Per father, Yann, : After CPS stay in 2015, pt took risperidone 0.5mg for a few weeks and then discontinued. No psychotic sx since then. Had episode in Jul similar to today which took medical care and time to resolve. Since that time, things have been going well, pt has enrolled in college and got a new car. He has been looking for a job. Father denies ANY psychotic sx at all. As to current presentation, he was vomiting on Sunday and acting "a little weird." Yesterday, more confused and losing things. They went to his car and found money on [facility]. There was also money in the car and pt couldnt say why. Pt started vomiting again and parents convinced him to come in to be checked out. Father smelled mj on son a few weeks ago and spoke with him about it. They went through his stuff today and found some. They are saving it in case it needs to be tested for adulterations. Pt has not expressed any thoughts of harm to self or others. Parents have no safety concerns, pt has been doing well recently. Allergies: Coded Allergies: tree nut (Severe, ANAPHYLAXIS 07/14/17) Current Medications: Current Medications Sig/Shon Start time Last Medication Dose Route Stop Time Status Admin Chlorpromazine 50 MG ONCE ONE 10/06 2345 DC 10/07 IM 10/06 2346 0113 Chlorpromazine 100 MG ONCE ONE 10/06 2330 CAN IM 10/06 2331 Cyanocobalamin/ 1 BAG Q24H 10/08 0300 AC Thiamine/Pyridoxine IV Sodium Chloride 1,000 ML Cyanocobalamin/ 1 BAG ONCE ONE 10/07 0330 DC 10/07 Thiamine/Pyridoxine IV 10/07 1129 0537 Sodium Chloride 1,000 ML Dextrose/Sodium 1,000 ML Q8H 10/07 1145 UNVr Chloride IV 10/08 0344 Diphenhydramine HCl 0 .STK-MED ONE 10/06 215 DC .ROUTE Diphenhydramine HCl 50 MG ONCE ONE 10/06 2129 DC 10/06 IV 10/06 Diphenhydramine HCl 25 MG ONCE ONE 10/06 2044 DC 10/06 IM 10/06 Diphenhydramine HCl 0 .STK-MED ONE 10/07 2043 DC .ROUTE Haloperidol 5 MG ONCE ONE 10/06 2044 DC 10/06 IM 10/06 Haloperidol 0 .STK-MED ONE 10/07 2043 DC .ROUTE Heparin Sodium 5,000 UNIT Q8 10/07 06 AC 10/07 (Porcine) SC 0537 Lorazepam 0 .STK-MED ONE 10/07 0000 DC .ROUTE Lorazepam 2 MG ONE ONE 10/06 2330 DC 10/07 IV 10/06 233 0010 Lorazepam 0 .STK-MED ONE 10/06 2158 DC .ROUTE Lorazepam 2 MG ONE ONE 10/06 2129 DC 10/06 IV 10/06 Lorazepam 0 .STK-MED ONE 10/06 2044 DC .ROUTE Lorazepam 2 MG ONCE ONE 10/06 2044 DC 10/06 IM 10/06 Midazolam HCl 2 MG Q4 PRN 10/07 08 AC IV Midazolam HCl 5 MG ONCE ONE 10/07 0430 DC 10/07 IV 10/07 0431 0457 Midazolam HCl 5 MG ONCE ONE 10/07 0200 DC 10/07 IV 10/07 0201 0210 Olanzapine 10 MG ONCE ONE 10/07 0200 DC 10/07 IM 10/07 0201 0155 Olanzapine 0 .STK-MED ONE 10/07 0158 DC IM Sodium Chloride 1,000 ML Q10H 10/07 0330 DC 10/07 IV 0407 Sodium Chloride 1,000 ML BOLUS ONE 10/06 2129 DC 10/06 IV 10/06 2228 2203 Sodium Chloride 1,000 ML BOLUS ONE 10/06 213 DC 10/06 IV 10/06 2228 2203 Thiamine HCl 0 .STK-MED ONE 10/07 0443 DC .ROUTE Past History Past Medical History Neurological: NONE EENT: NONE Cardiovascular: NONE Respiratory: NONE Gastrointestinal: NONE Hepatic: NONE Renal: NONE Musculoskeletal: NONE Psychiatric: anxiety, substance abuse, Psychotic d/o, NOS in 2016, requiring psychiatry admission. 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 Past Surgical History Surgical History: non-contributory Psychosocial History Strengths/Capabilities: supportive family Physical Limitations (Interventions): The patient reports chronic back pain, of unknown etiology Psychiatric Treatment History Psych Treatment Psychiatric Treatment Yes Inpatient Treatment Yes (CPS) Diagnosis: Previously: F29 Unspecified psychotic d/o F12.20 Cannabis use d/o, severe F10.20 Alcohol use d/o, mild Risk Factors: age (under 24/over 65), high anxiety/distress, SA/MH hospitalized, substance abuse, poor impulse control, male Substance Use/Abuse History Drug Use/Abuse Substances Used/Abused Yes Substance Used/Abused Marijuana (unclear others) Substance Abuse Treatment Substance Abuse Treatment Past Substance Abuse [place] No Assessment/Plan Mental Status Orientation: Confused Affect: Anxious (irritable) Speech: Slurred Neuro-vegetative: Sleep Disturbance Mental Status Exam: MSE General appearance: fair hygiene and grooming; Attitude: not cooperative; Eye contact: none; Movement: ++ psychomotor slowing; Speech: slurred; Mood: "(I was eating dinner)" Affect: irritable, inappropriate, constricted, labile, congruent; Thought process: confused Thought content: did not express any SI or HI, no paranoid ideation noted; Perception: did not express any hallucinations- auditory, visual, does not appear to be responding to internal stimuli; I/J: limited Lab Results: Laboratory Tests 10/07 10/07 10/07 0850 0500 0039 Chemistry Sodium (137 - 145 mmol/L) 140 Potassium (3.5 - 5.1 mmol/L) 4.5 Chloride (98 - 107 mmol/L) 108 H Carbon Dioxide (22 - 30 mmol/L) 20 L Anion Gap (5 - 16) 12 BUN (9 - 20 mg/dL) 23 H Creatinine (0.7 - 1.2 mg/dL) 0.9 Estimated GFR (>60 ml/min) > 60 Glucose (65 - 99 mg/dL) 83 Lactic Acid (0.7 - 2.1 mmol/L) < 0.5 L Calcium (8.4 - 10.2 mg/dL) 8.7 Phosphorus (2.5 - 4.5 mg/dL) 4.1 Magnesium (1.6 - 2.3 mg/dL) 2.1 Total Bilirubin (0.2 - 1.3 mg/dL) 1.0 AST (17 - 59 U/L) 35 ALT (21 - 72 U/L) 52 Creatine Kinase (55 - 170 U/L) 1183 H Albumin (3.5 - 5.0 g/dL) 3.8 Vitamin B12 (239 - 931 pg/mL) 484 Hematology CBC w Diff NO MAN DIFF REQ WBC (4.8 - 10.8 /CUMM) 9.7 RBC (4.70 - 6.10 /CUMM) 4.13 L Hgb (14.0 - 18.0 G/DL) 12.1 L Hct (42 - 52 %) 36.2 L MCV (80.0 - 94.0 FL) 87.7 MCH (27.0 - 31.0 PG) 29.4 MCHC (33.0 - 37.0 G/DL) 33.5 RDW (11.5 - 14.5 %) 12.9 Plt Count (130 - 400 /CUMM) 268 MPV (7.4 - 10.4 FL) 7.1 L Gran % (42.2 - 75.2 %) 65.1 Lymphocytes % (20.5 - 51.1 %) 23.3 Monocytes % (1.7 - 9.3 %) 10.9 H Eosinophils % (0 - 5 %) 0.1 Basophils % (0.0 - 2.0 %) 0.6 Absolute Granulocytes (1.4 - 6.5 /CUMM) 6.3 Absolute Lymphocytes (1.2 - 3.4 /CUMM) 2.3 Absolute Monocytes (0.10 - 0.60 /CUMM) 1.1 H Absolute Eosinophils (0.0 - 0.7 /CUMM) 0 Absolute Basophils (0.0 - 0.2 /CUMM) 0.1 Toxicology Urine Opiates Screen (>2000 NG/ML) < 100 Methadone Screen (>300 NG/ML) 67 Barbiturate Screen (>200 NG/ML) < 60 Ur Phencyclidine Scrn (>25 NG/ML) < 6.00 Amphetamines Screen (>1000 NG/ML) 178 U Benzodiazepines Scrn (>200 NG/ML) < 85 Urine Cocaine Screen (>300 NG/ML) < 50 Urine Cannabis Screen (>50 NG/ML) 76.10 H 10/06 Chemistry Sodium (137 - 145 mmol/L) 137 Potassium (3.5 - 5.1 mmol/L) 3.9 Chloride (98 - 107 mmol/L) 98 Carbon Dioxide (22 - 30 mmol/L) 19 L Anion Gap (5 - 16) 20 H BUN (9 - 20 mg/dL) 24 H Creatinine (0.7 - 1.2 mg/dL) 1.1 Estimated GFR (>60 ml/min) > 60 BUN/Creatinine Ratio (7 - 25 %) 21.8 Glucose (65 - 99 mg/dL) 170 H Calcium (8.4 - 10.2 mg/dL) 9.7 Phosphorus (2.5 - 4.5 mg/dL) 4.3 Magnesium (1.6 - 2.3 mg/dL) 1.9 Total Bilirubin (0.2 - 1.3 mg/dL) 1.1 AST (17 - 59 U/L) 26 ALT (21 - 72 U/L) 69 Alkaline Phosphatase (< 127 U/L) 80 Creatine Kinase (55 - 170 U/L) Cancelled 153 Total Protein (6.3 - 8.2 g/dL) 8.6 H Albumin (3.5 - 5.0 g/dL) 5.1 H Globulin (1.9 - 4.2 gm/dL) 3.5 Albumin/Globulin Ratio (1.1 - 2.2 %) 1.5 Lipase (23 - 300 U/L) 34 TSH &T3 &Free T4 Intrp (0.27 - 4.20 uIU/mL) 2.180 Hematology CBC w Diff NO MAN DIFF REQ WBC (4.8 - 10.8 /CUMM) 11.8 H RBC (4.70 - 6.10 /CUMM) 4.98 Hgb (14.0 - 18.0 G/DL) 14.7 Hct (42 - 52 %) 43.9 MCV (80.0 - 94.0 FL) 88.2 MCH (27.0 - 31.0 PG) 29.5 MCHC (33.0 - 37.0 G/DL) 33.4 RDW (11.5 - 14.5 %) 13.1 Plt Count (130 - 400 /CUMM) 378 MPV (7.4 - 10.4 FL) 7.3 L Gran % (42.2 - 75.2 %) 68.1 Lymphocytes % (20.5 - 51.1 %) 21.9 Monocytes % (1.7 - 9.3 %) 9.5 H Eosinophils % (0 - 5 %) 0.1 Basophils % (0.0 - 2.0 %) 0.4 Absolute Granulocytes (1.4 - 6.5 /CUMM) 8.1 H Absolute Lymphocytes (1.2 - 3.4 /CUMM) 2.6 Absolute Monocytes (0.10 - 0.60 /CUMM) 1.1 H Absolute Eosinophils (0.0 - 0.7 /CUMM) 0 Absolute Basophils (0.0 - 0.2 /CUMM) 0 Toxicology Serum Alcohol (<10 MG/DL) < 10.0 Diffential Diagnosis: Substance-induced psychosis Cyclic vomiting syndrome Unspecified psychosis Cannabis dependence Impression: Pt with 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 Vomiting may be secondary to CVS given is known side effect of mj use, particularly heavy use. This may have triggered delirium. In addition, mj may have been laced with another substance or pt may have used something like K2 which can cause agitation, confusion, delirium, agression and which does not show up on utox. Again, delirium and agitation should resolve with withdrawal of offending agent. Pts family does have sample of the weed in case it does not or complications arise. - Needs 1:1 given delirium - Pt currently sedated with versed - May use thorazine or zyprexa for agitation, please monitor BPs as concurrent BDZ use and QTCs - Delirium does take time to resolve even in young pts Thank you for the consult.
[2017-10-07 16:00] VITALS: BP 140/70
[2017-10-08] VITALS (9 sets, daily range): BP systolic 100–140; BP diastolic 52–78
[2017-10-08 04:41] LABS: ABSOLUTE BASOPHIL COUNT 0.1 /CUMM (0.0-0.2); ABSOLUTE EOSINOPHIL COUNT 0.1 /CUMM (0.0-0.7); ABSOLUTE GRANULOCYTE CT 5.2 /CUMM (1.4-6.5); ABSOLUTE LYMPH COUNT 2.3 /CUMM (1.2-3.4); ABSOLUTE MONOCYTE COUNT 0.7 /CUMM (0.10-0.60); BASOPHIL % 0.6 % (0.0-2.0); GRANULOCYTE % 62.1 % (42.2-75.2); HEMATOCRIT 35.8 % (42-52); MEAN CORPUSCULAR HGB 30.4 PG (27.0-31.0); MEAN CORPUSCULAR HGB CONC 34.5 G/DL (33.0-37.0); MEAN CORPUSCULAR VOLUME 88.1 FL (80.0-94.0); MEAN PLATELET VOLUME 7.6 FL (7.4-10.4); PLATELET COUNT 221 /CUMM (130-400); RBC DISTRIBUTION WIDTH 12.8 % (11.5-14.5); RED BLOOD CELL CT 4.06 /CUMM (4.70-6.10); WHITE BLOOD CELL COUNT 8.3 /CUMM (4.8-10.8)
--- NOTE | 2017-10-08 07:00 | PN- Resident CRCU ---
See Addendum Subjective HPI/CRCU Issues: I followed up and examined the patient today. He is resting comfortably in bed, has a Cali catheter, does not appear to be in any distress, is oriented to time place and person, and was concerned about eating, and speaking to his parents. He passed a bedside swallow screen that I conducted herself, and I restarted his oral diet. When his father visited him earlier this morning, he was agitated and anxious, was almost pulling out his lines, and calmed down only after his father left and he had been given versed. Objective Vital Signs & I&O Last 8 Hrs of Vitals and I&O: Vital Signs Date Time Temp Pulse Resp B/P B/P Pulse O2 O2 Flow FiO2 Mean Ox Delivery Rate 10/08 1200 98.4 82 18 138/78 10/08 1200 97 Room Air 10/08 0800 99 Room Air Room Air 10/08 0800 98.9 97 19 116/52 99 Room Air 10/08 0000 100.3 18 18 140/73 97 Room Air 10/07 1600 98.1 78 16 140/70 97 Room Air Room Air 10/07 1600 94 Room Air Room Air Exam General Appearance: well developed/nourished, no apparent distress, alert, awake , anxious Head: atraumatic, normal appearance Neck: normal inspection, supple, full range of motion Respiratory: normal breath sounds, chest non-tender, no respiratory distress Cardiovascular: regular rate/rhythm Gastrointestinal: normal bowel sounds, soft, non-tender Extremities: normal inspection, normal capillary refill, normal range of motion, no edema Cranial Nerves: grossly intact physically, Psychiatry: could not assess fully, as the patient was aggressive at times Skin: intact, normal color, warm/dry Skin Temp/Moisture Exam: Warm/Dry Sepsis Skin Exam (color): Normal for Ethnicity Back: normal inspection Sepsis Peripheral Pulse Location: Radial Sepsis Peripheral Pulse Exam: Normal Sepsis Cap Refill Exam: <2 Sec Current Medications: Current Medications Sig/Shon Start time Last Medication Dose Route Stop Time Status Admin Cyanocobalamin/ 1 BAG Q24H 10/08 0300 AC 10/08 Thiamine/Pyridoxine IV 0536 Sodium Chloride 1,000 ML Dextrose/Sodium 1,000 ML Q8H 10/07 1145 DC 10/07 Chloride IV 10/08 1024 1930 Folic Acid 1 MG DAILY 10/09 1000 UNVr PO Heparin Sodium 5,000 UNIT Q8 10/07 0600 AC 10/08 (Porcine) SC 0536 Midazolam HCl 5 MG .STK-MED ONE 10/08 0129 DC IM 10/08 0130 Midazolam HCl 5 MG .STK-MED ONE 10/07 2112 DC IM 10/07 2112 Midazolam HCl 2 MG Q4 PRN 10/07 0800 AC 10/08 IV 0922 Multivitamins 1 TAB DAILY 10/09 1000 UNVr PO Sodium Chloride 1,000 ML Q6H 10/08 1115 AC 10/08 IV 1200 Thiamine HCl 100 MG DAILY 10/09 1000 UNVr PO Impression/Plan Impression/Problem List Impression: 22-year-old male with past history of polysubstance abuse, anxiety, psychosis including admission to Inpatient Psychiatry, and noncompliance to medication/ follow-ups, he was brought to the emergency for abnormal behavior compared to his baseline. In the ICU, he was found to have belligerent behavior, with shaking episodes, subsequently with high CPK and not sure whether he only had marijuana or had something laced with it, he was admitted to the ICU for close observation. Initially, he was obtunded to the point where he responded only after a sternal rub. He is currently in the ICU for management of following issues: # Altered mental status, likely secondary to polysubstance abuse At this time, patient has had waxing and waning altered mental status, U tox negative for opiates but positive only for marijuana. However other forms of medications could also be abused which are not commonly tested in the routine U tox. He has a history of using ketamine as one of the drugs of abuse, which could also apparently be laced with marijuana to give a mixed picture. His vitals have remained stable so far, and he has received benzodiazepines, given his condition and also his history of benzodiazepines use in the past to avoid withdrawal. * Continue to monitor in ICU for now, with plans to transfer to general medical floor when more stable * Continue benzodiazepines * CIWA protocol has been added to monitor him for alcohol withdrawal symptoms * Continue with IV banana bag for today, and switched to by mouth folate/ thiamine/multivitamin starting tomorrow. * Continue repleting electrolytes as necessarY * Following psychiatry service's recommendations * Have requested home health care social worker consultation as well, will follow Patient's condition can also relate fairly to neuroleptic malignant syndrome, thus will watch for any changes in that direction. If he has the syndrome, will be treated as psychiatry has suggested earlier today. Patient as well as his parents well explained about the differential diagnosis and that we are watching for it. All questions answered. #Rhabdomyolysis Patient was found to have rhabdomyolysis with high anion gap metabolic acidosis on arrival, with lactic acid and ketones within normal limits but CPK on the rising trend. He is being adequately fluid resuscitated, and his kidney functions have remained stable all this time. * Continue with IV fluids aggressively * Continue monitoring CPK daily #Diet: Patient passed a bedside swallow screen this morning, and is having regular diet. #DVT ppx: SQ Heparin #Code status: Full code UPDATE: 1715 HRS: Patient's parents visited him, and I could clearly see the patient getting agitated and anxious more around his parents to the point that he pulled his telemetry connector and wanted to leave. HE CANNOT LEAVE AGAINST MEDICAL ADVICE, UNTIL CLEARED BY PSYCHIATRY SERVICE. PSYCHIATRY CONSULT EARLIER MENTIONED THAT THE PATIENT CANNOT LEAVE AMA. Night team signed out about the update. Problem List: 1. Rhabdomyolysis 2. Delirium due to dissociative drug Pain Ratin Pain Location: - Pain Goal: Pain 4 or less Pain Plan: prn Tomorrow's Labs & Rationales: ICU bundle Plan DVT/Prophylaxis: mechanical, pharmacological
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
[2017-10-09] VITALS (7 sets, daily range): BP systolic 128–150; BP diastolic 70–88
[2017-10-09 05:56] LABS: ABSOLUTE BASOPHIL COUNT 0 /CUMM (0.0-0.2); ABSOLUTE EOSINOPHIL COUNT 0.2 /CUMM (0.0-0.7); ABSOLUTE GRANULOCYTE CT 3.7 /CUMM (1.4-6.5); ABSOLUTE LYMPH COUNT 2.3 /CUMM (1.2-3.4); ABSOLUTE MONOCYTE COUNT 0.6 /CUMM (0.10-0.60); BASOPHIL % 0.6 % (0.0-2.0); EOSINOPHIL % 2.6 % (0-5); HEMATOCRIT 35.5 % (42-52); MEAN CORPUSCULAR HGB 29.9 PG (27.0-31.0); MEAN CORPUSCULAR HGB CONC 33.9 G/DL (33.0-37.0); MEAN CORPUSCULAR VOLUME 88.3 FL (80.0-94.0); MEAN PLATELET VOLUME 7.1 FL (7.4-10.4); PLATELET COUNT 263 /CUMM (130-400); RBC DISTRIBUTION WIDTH 12.6 % (11.5-14.5); RED BLOOD CELL CT 4.02 /CUMM (4.70-6.10); WHITE BLOOD CELL COUNT 6.9 /CUMM (4.8-10.8)
--- NOTE | 2017-10-09 07:10 | PN- Resident CRCU ---
Milly MORALES,Ben 10/09/17 0709: Subjective HPI/CRCU Issues: Patient is in the ICU with ? Multiple substance abuse for close observation. I followed up and examined the patient today. He is resting comfortably in bed, does not appear to be in distress, although he says he gets a little anxious at times, has 1:1 sitter in the room. Today, he seems to be calm, not agitated at all compared to yesterday little evening. CIWA scores minimal. His Versed was changed to lorazepam yesterday as PRN. He only required it once last night and he also got Rozarem last night for insomnia. Objective Vital Signs & I&O Last 8 Hrs of Vitals and I&O: Intake & Output 10/09 0800 Intake Total 1450 Output Total 550 Balance 900 Intake, IV 1200 Intake, Oral 250 Output, Urine 550 Exam General Appearance: well developed/nourished, no apparent distress, alert, awake , comfortable Other Physical Findings: Head: atraumatic, normal appearance Neck: normal inspection, supple, full range of motion Respiratory: normal breath sounds, chest non-tender, no respiratory distress Cardiovascular: regular rate/rhythm Gastrointestinal: normal bowel sounds, soft, non-tender Extremities: normal inspection, normal capillary refill, normal range of motion, no edema Cranial Nerves: grossly intact physically Psychiatry: patient is calm, oriented and cooperative, has insight to his medical condition when explained, but not towards his drug abuse, agreeable to the plan of medical management Skin: intact, normal color, warm/dry Sepsis Skin Exam (color): Normal for Ethnicity Back: normal inspection Current Medications: Current Medications Sig/Shon Start time Last Medication Dose Route Stop Time Status Admin Cyanocobalamin/ 1 BAG Q24H 10/08 0300 DC 10/08 Thiamine/Pyridoxine IV 10/08 2200 0536 Sodium Chloride 1,000 ML Dextrose/Sodium 1,000 ML Q8H 10/07 1145 DC 10/07 Chloride IV 10/08 1024 1930 Folic Acid 1 MG DAILY 10/09 1000 AC PO Heparin Sodium 5,000 UNIT Q8 10/07 0600 AC 10/09 (Porcine) SC 0503 Lorazepam 2 MG Q6-PRN PRN 10/08 2300 AC 10/08 IV 2304 Midazolam HCl 5 MG .STK-MED ONE 10/08 2231 DC IM 10/08 2232 Midazolam HCl 5 MG .STK-MED ONE 10/08 1715 DC IM 10/08 1716 Midazolam HCl 5 MG .STK-MED ONE 10/08 1409 DC IM 10/08 1410 Midazolam HCl 5 MG .STK-MED ONE 10/08 0917 DC IM 10/08 0918 Midazolam HCl 2 MG Q4 PRN 10/07 0800 DC 10/08 IV 2244 Multivitamins 1 TAB DAILY 10/09 1000 AC PO Nicotine 2 MG Q2 HRS NEEDED PRN 10/08 2300 AC 10/08 PO 2319 Nicotine 14 MG DAILY 10/08 1800 AC 10/08 TOP 1911 Ramelteon 8 MG ONCE ONE 10/09 0030 DC 10/09 PO 10/09 0031 0022 Sodium Chloride 1,000 ML Q6H 10/08 1115 AC 10/09 IV 0503 Thiamine HCl 100 MG DAILY 10/09 1000 AC PO Impression/Plan Impression/Problem List Impression: 22-year-old male with past history of polysubstance abuse, anxiety, psychosis including admission to Inpatient Psychiatry, and noncompliance to medication/ follow-ups, he was brought to the emergency for abnormal behavior compared to his baseline. In the ICU, he was found to have belligerent behavior, with "shaking" episodes, subsequently with high CPK and not sure whether he only had marijuana or had something laced with it, he was admitted to the ICU for close observation. Initially, he was obtunded to the point where he responded only after a sternal rub. he is much alert and oriented today. He is currently in the ICU for management of following issues: # Altered mental status, likely secondary to polysubstance abuse At this time, patient has had waxing and waning altered mental status, U tox negative for opiates but positive only for marijuana. However other forms of medications could also be abused which are not commonly tested in the routine U tox. He has a history of using ketamine as one of the drugs of abuse, which could also apparently be laced with marijuana to give a mixed picture. His vitals have remained stable so far, and he has received benzodiazepines, given his condition and also his history of benzodiazepines use in the past to avoid withdrawal. * Transfer to general medical floor * Continue benzodiazepines as PO Ativan PRN and IV PRN * CIWA scores are NOT suggestive of alcohol withdrawal * Continue PO folate/thiamine/multivitamin * Continue repleting electrolytes as necessary * Following psychiatry service's recommendations, discussed briefly today about his progress today * Have requested professor of social work consultation as well, will follow probably later today #Rhabdomyolysis Patient was found to have rhabdomyolysis with high anion gap metabolic acidosis on arrival, with lactic acid and ketones within normal limits but CPK is slowly tending down today at 1048 from 1255 yesterday. He is being adequately fluid resuscitated, and his kidney functions have remained stable all this time. * Continue with IV fluids aggressively now at 150 ml/hr * Continue monitoring CPK daily #Diet: Regular diet #DVT ppx: SQ Heparin #Code status: Full code Problem List: 1. Substance abuse 2. Rhabdomyolysis 3. Agitation Pain Ratin Pain Location: - Pain Goal: Pain 4 or less Pain Plan: prn Tomorrow's Labs & Rationales: ICU bundle, CPK Plan DVT/Prophylaxis: mechanical, pharmacological Robbin Church MD 10/09/17 8765: Attending MD Review Statement Attending Sign Off Attending Cosign Statement: I have: examined this patient, reviewed [facility] EMR data, discussd w/resident/PA/ MANAGER CARE MANAGEMENT, discussed mgmt plan w/pt, agreed w/resident/PA/MANAGER CARE MANAGEMENT, amended to note. Other Findings: The patient was seen and discussed with house staff. Not agitated at the time of my visit. Ativan prn. CK decreasing. OK to transfer to general medical floor. Continue IV fluids and follow CK. Psych follow-up.
--- NOTE | 2017-10-10 08:33 | PN- Resident CRCU ---
Ricky Mccarthy 10/10/17 0832: Subjective HPI/CRCU Issues: Currently stable. Vitals remained stable. No SI/HI. CIWA scores low.He has received 3 doses of lorazepam 2 mg in the last 24 hours. CIWA as of 10/09 @ 2000: 4-0-1-6-0-0-7-0-0 24 Hour Events: Temperature 98.9, pulse rate 63, respirations 16, blood pressure 146/82, 96% on room air. No overnight events reported. He reported to have been on one-to-one sitter. Objective Vital Signs & I&O Last 8 Hrs of Vitals and I&O: Intake & Output 10/10 1600 Intake Total Output Total Balance Patient 139 lb Weight Exam General Appearance: alert Other Physical Findings: General Exam: AAOx3, No acute distress, Skin: No rashes, no breakdown;HEENT: PERRLA, EOMI;Neck: Supple, No JVD; No cervical lymphadenopathy;CVS: Reg Rate, Normal S1,S2, No MGR;Resp: Normal air entry, no ronchi/rales;Abdomen: Soft, No tenderness, Normal Bowel Sounds;Neuro: Normal Speech, Strength 5/5 b/l x 4 extremities, Sensation intact, CN III-XII NL, Reflexes 2+;Extremities: No cyanosis, no pedal edema Current Medications: Current Medications Sig/Shon Start time Last Medication Dose Route Stop Time Status Admin Folic Acid 1 MG DAILY 10/09 1000 DCD 10/10 PO 1200 Heparin Sodium 5,000 UNIT Q8 10/07 0600 DCD 10/09 (Porcine) SC 0503 Lorazepam 2 MG TID PRN 10/09 0845 DC 10/09 PO 1858 Lorazepam 2 MG Q6-PRN PRN 10/08 2300 DC 10/09 IV 2250 Multivitamins 1 TAB DAILY 10/09 1000 DCD 10/10 PO 1200 Nicotine 2 MG Q2 HRS NEEDED PRN 10/08 2300 DCD 10/09 PO 1801 Nicotine 14 MG DAILY 10/08 1800 DCD 10/10 TOP 1200 Ramelteon 8 MG QPM 10/09 2200 DCD 10/09 PO 2250 Sodium Chloride 1,000 ML Q6H 10/08 1115 DCD 10/10 IV 1206 Thiamine HCl 100 MG DAILY 10/09 1000 DCD 10/10 PO 1200 Impression/Plan Impression/Problem List Impression: 22-year-old male with past history of polysubstance abuse, anxiety, psychosis including admission to Inpatient Psychiatry, and noncompliance to medication/ follow-ups, he was brought to the emergency for abnormal behavior compared to his baseline. Pertinent labs in the last 24 hours: Sodium 140, potassium 3.8, bicarbonate 23, BUN 11, creatinine 0.7. Magnesium 1.5. Creatinine kinase 584. He is currently in the ICU for management of following issues: # Altered mental status, likely secondary to polysubstance abuse At this time, patient has had waxing and waning altered mental status, U tox negative for opiates but positive only for marijuana. However other forms of medications could also be abused which are not commonly tested in the routine U tox. He has a history of using ketamine as one of the drugs of abuse, which could also apparently be laced with marijuana to give a mixed picture. His vitals have remained stable so far, and he has received benzodiazepines, given his condition and also his history of benzodiazepines use in the past to avoid withdrawal. * Transfer to general medical floor * Discontinue benzodiazepines. * CIWA scores are NOT suggestive of alcohol withdrawal * Continue PO folate/thiamine/multivitamin * No history of cardiac disease. Recheck magnesium when he sees his primary care physician. * Following psychiatry service's recommendations, discussed briefly today about his progress today, who recommended a possible discharge, with close follow-up as an outpatient. #Rhabdomyolysis Patient was found to have rhabdomyolysis with high anion gap metabolic acidosis on arrival, with lactic acid and ketones within normal limits but CPK is slowly tending down today at 1048 from 1255 yesterday. CPK 584. Which is trending down. #Diet: Regular diet #DVT ppx: SQ Heparin #Code status: Full code Problem List: 1. Substance abuse 2. Rhabdomyolysis 3. Agitation Pain Ratin Tomorrow's Labs & Rationales: no labs necessary Plan DVT/Prophylaxis: mechanical, pharmacological Robbin Church MD 10/10/17 2220: Attending MD Review Statement Attending Sign Off Attending Cosign Statement: I have: examined this patient, reviewed [facility] EMR data, discussd w/resident/PA/ MANAGER RESEARCH, agreed w/resident/PA/MANAGER RESEARCH, amended to note. Other Findings: The patient was seen and discussed with house staff and psychiatry. CK decreased (500's). OK to discharge to home today.
--- NOTE | 2017-10-10 10:21 | PN- Psychiatry ---
Assessment/Plan Impression: The patient is aware of aftercare treatment options here at [facility] for substance use and mental health. Alyssa Méndez, ICT SYSTEMS TEST ENGINEER, and myself also offered to help him with other resources. He is refusing all assistance at this time, and states that he would like to "find a doctor who could give me something," but is not more specific when asked about what he expects. He expects to make up his two Greek classes at [facility]. He denies using alcohol, cannabis or other drugs to self-medicate for anxiety, panic, depression or to block out memory of trauma. His use of substances is recreational, and we discussed some of the health risks of their use. He states that he would get a marijuana card if he could. He has received 3 doses of lorazepam 2 mg in the last 24 hours. CIWA as of 10/09 @ 2000: 8-8-3-6-0-0-7-0-0 CK: 1048 on 10/09/17; 584 on 10/10/17. Also on 10/10/17: magnesium 1.5L, calcium 8.0L Suggestion: 1. Please reduce lorazepam as much as possible, by tapering at a rate of 20% daily reduction. The patient denies using these as an outpatient and is a low risk for a withdrawal seizure. 2. Replete electrolytes, as indicated. 3. Continue to encourage the patient to seek outpatient psychiatry and counseling for substance abuse, family discord and possible anxiety/social anxiety. 4. Continue to discourage the use of alcohol, cannabis and other street drugs. the patient is not delirious, not psychotic and not suicidal. He is clear to discharge from a psychiatric viewpoint. Thank you for this consult. Psychiatry is signing off. Subjective Subjective: Sleep and oriented to person, place, day, month and year. Denies AH, VH and presetns no mil delusions Denies SI or HI Denies depressive feelings, hopelessness, helplessness, worthlessness, guilty feelings. Anxiety 07/11; 04/10 is the worst He reports a history of "not wanting to go into the store; I'd sit in my car," but reports he has worked through this by self-directed exposure therapy. Review of Systems Neurological/Psychological: Reports: anxiety. Objective Last 24 Hrs of Vital Signs/I&O Vital Signs Date Time Temp Pulse Resp B/P B/P Pulse O2 O2 Flow FiO2 Mean Ox Delivery Rate 10/10 0000 96 Room Air 10/09 2300 98.9 63 16 146/82 96 Room Air 10/09 1600 98.2 100 20 140/88 10/09 1600 98.2 100 20 140/88 98 Room Air 10/09 1200 98.9 94 20 150/88 Intake & Output 10/10 1600 10/10 0800 10/10 0000 Intake Total 1265 1821 Output Total 1 Balance 1264 1821 Intake, IV 1145 1321 Intake, Oral 120 500 Number 0 0 Bowel Movements Output, Urine 1 Patient 139 lb Weight Physical Exam: Not performed Physical Exam General Appearance: no apparent distress, comfortable, Sleepy, and wants to sleep until his propsed discharge later today. Neurologic/Psychiatric: oriented x 3 Current Medications: Current Medications Sig/Shon Start time Last Medication Dose Route Stop Time Status Admin Folic Acid 1 MG DAILY 10/09 1000 AC 10/09 PO 0852 Heparin Sodium 5,000 UNIT Q8 10/07 0600 AC 10/09 (Porcine) SC 0503 Lorazepam 2 MG TID PRN 10/09 0845 AC 10/09 PO 1858 Lorazepam 2 MG Q6-PRN PRN 10/08 2300 AC 10/09 IV 2250 Multivitamins 1 TAB DAILY 10/09 1000 AC 10/09 PO 0852 Nicotine 2 MG Q2 HRS NEEDED PRN 10/08 2300 AC 10/09 PO 1801 Nicotine 14 MG DAILY 10/08 1800 AC 10/09 TOP 0850 Ramelteon 8 MG QPM 10/09 2200 AC 10/09 PO 2250 Sodium Chloride 1,000 ML Q6H 10/08 1115 AC 10/10 IV 0058 Thiamine HCl 100 MG DAILY 10/09 1000 AC 10/09 PO 0852 Results Last 24 Hrs of Labs/Mics: Laboratory Tests 10/10 0704 Chemistry Sodium (137 - 145 mmol/L) 140 Potassium (3.5 - 5.1 mmol/L) 3.8 Chloride (98 - 107 mmol/L) 109 H Carbon Dioxide (22 - 30 mmol/L) 23 Anion Gap (5 - 16) 9 BUN (9 - 20 mg/dL) 11 Creatinine (0.7 - 1.2 mg/dL) 0.7 Estimated GFR (>60 ml/min) > 60 Glucose (65 - 99 mg/dL) 89 Calcium (8.4 - 10.2 mg/dL) 8.0 L Phosphorus (2.5 - 4.5 mg/dL) 3.9 Magnesium (1.6 - 2.3 mg/dL) 1.5 L Total Bilirubin (0.2 - 1.3 mg/dL) 0.3 AST (17 - 59 U/L) 26 ALT (21 - 72 U/L) 35 Creatine Kinase (55 - 170 U/L) 584 H Albumin (3.5 - 5.0 g/dL) 3.0 L
[2017-10-10] MEDS ORDERED: FOLIC ACID1 M1 PO (11:14)
[2017-10-10] MEDS ORDERED: ONE DAILY MULT1 EAC2 PO (11:14)
[2017-10-10] MEDS ORDERED: VITAMIN B-1100 MG PO (11:14)
--- NOTE | 2017-10-10 11:17 | Patient Discharge Instructions ---
Discharge Instructions General Discharge Information You were seen/treated for: - Substance abuse Watch for these problems: #1 chest pain, shortness of breath #2 change in mentation, confusion Special Instructions: -Please see your primary care provider within a week of discharge. -Please follow up with your psychiatrist within a week of discharge. -Please take your medications as prescribed. Acute Coronary Syndrome Inclusion Criteria At DC or during hospital stay patient has or had the following: ACS DIAGNOSIS No Discharge Core Measures Meds if any: Prescribed or Continued at Discharge Meds if any: NOT Prescribed or Continued at Discharge Congestive Heart Failure Inclusion Criteria At DC or during hospital stay patient has or had the following: CHF DIAGNOSIS No Discharge Core Measures Meds if any: Prescribed or Continued at Discharge Meds if any: NOT Prescribed or Continued at Discharge Cerebrovascular accident Inclusion Criteria At DC or during hospital stay patient has or had the following: CVA/TIA Diagnosis No Discharge Core Measures Meds if any: Prescribed or Continued at Discharge Meds if any: NOT Prescribed or Continued at Discharge Venous thromboembolism Inclusion Criteria VTE Diagnosis No VTE Type NONE VTE Confirmed by (Test) NONE Discharge Core Measures - Per Current guidelines, there needs to be overlap - treatment for the first 5 days of Warfarin therapy. - If discharged on Warfarin prior to 5 days of - overlap therapy, the patient will need to be - assessed for post discharge needs including - *Post discharge parental anticoagulation - *Warfarin and/or parental anticoagulation education - *Follow up date to check INR post discharge At least 5 days overlap therapy as Inpatient No Meds if any: Prescribed or Continued at Discharge Note: Overlap Therapy is Warfarin and Anticoagulant Meds if any: NOT Prescribed or Continued at Discharge
--- NOTE | 2017-10-10 13:38 | Discharge Summary ---
Visit Information Visit Dates Admission Date: 10/07/17 Hospital Course Allergies: Coded Allergies: tree nut (Severe, ANAPHYLAXIS 07/14/17) Discharge Instructions Medications at Discharge Discharge Medications: Start taking the following new medications: Folic Acid (Folic Acid) 1 MG TABLET 1 Milligram ORAL DAILY Qty = 30 Refills = 1 Comments: Last Taken: 10/10/17 Time: 1200 Thiamine HCl (Vitamin B-1) 100 MG TABLET 100 Milligram ORAL DAILY Qty = 30 Refills = 1 Multivitamin (One Daily Multivitamin) 1 EACH TABLET 1 Tablet ORAL DAILY Qty = 30 Refills = 1
== END 2017-10-10 15:00 | DRG 776 ==
LOC: ERH 20:18 → ERHI 10-07 02:17 → CRI 10-07 02:17 → ENRESERV 10-07 03:27 → CRI 10-07 04:32 → ENPENDDIS 10-10 13:20 → CRI 10-10 15:00
PROVIDERS: Emergency Medicine; Student in an Organized Health Care Education/Training Program
DX: F12.259 Cannabis dependence with psychotic disorder, unspecified (principal); F12.221 Cannabis dependence with intoxication delirium; F19.959 Other psychoactive substance use, unspecified with psychoactive substance-induced psychotic disorder, unspecified; E87.2 Acidosis; F41.9 Anxiety disorder, unspecified; M62.82 Rhabdomyolysis; Z91.018 Allergy to other foods; R00.0 Tachycardia, unspecified; I10 Essential (primary) hypertension; Y92.009 Unspecified place in unspecified non-institutional (private) residence as the place of occurrence of the external cause
CPT/HCPCS: CCU; 36415; 80307; 82436; 87086; 93005; 93010; 96372; 96374; 96375; 96376; 99232; G0480; J1200; J1630; J1644; J3490; J7042

== ENCOUNTER 2018-03-22 23:22 | Emergency (ER) | payer OTHER ==
[~2018-03-22] VITALS: Ht 182.9 cm; Wt 86.2 kg
[~2018-03-22 23:22] MED LIST changes: +FOLIC ACID1 M1 PO; +NYSTATIN15 G1 TOP; +ONE DAILY MULT1 EAC2 PO; +VITAMIN B-1100 MG PO
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
[2018-03-23 06:21] LABS: ABSOLUTE BASOPHIL COUNT 0 /CUMM (0.0-0.2); ABSOLUTE EOSINOPHIL COUNT 0.1 /CUMM (0.0-0.7); ABSOLUTE LYMPH COUNT 2.6 /CUMM (1.2-3.4); BASOPHIL % 0.5 % (0.0-2.0); EOSINOPHIL % 1.1 % (0-5); GRANULOCYTE % 56.8 % (42.2-75.2); HEMATOCRIT 42.1 % (42-52); MEAN CORPUSCULAR HGB 29.5 PG (27.0-31.0); MEAN CORPUSCULAR VOLUME 86.9 FL (80.0-94.0); MEAN PLATELET VOLUME 7.1 FL (7.4-10.4); PLATELET COUNT 321 /CUMM (130-400); RED BLOOD CELL CT 4.85 /CUMM (4.70-6.10); WHITE BLOOD CELL COUNT 8.7 /CUMM (4.8-10.8)
[2018-03-23 11:34] VITALS: BP 138/72
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
== END 2018-03-23 11:30 ==
LOC: ERH 23:22
PROVIDERS: Emergency Medicine
DX: F14.10 Cocaine abuse, uncomplicated (principal); F12.90 Cannabis use, unspecified, uncomplicated; F41.9 Anxiety disorder, unspecified; F29 Unspecified psychosis not due to a substance or known physiological condition
CPT/HCPCS: 80307; 96372; G0463; G0480; J1200; J1630